=== PATIENT | female | born 1975 | race Caucasian/White ===

== ENCOUNTER 2017-11-10 07:35 | Emergency (ER) | payer OTHER ==
[~2017-11-10] VITALS: Ht 157.5 cm; Wt 67.5 kg
[2017-11-10 07:38] VITALS: BP 149/102
[2017-11-10 10:37] LABS: HEMATOCRIT 38.3 % (36.0-46.0); HEMOGLOBIN 13.3 G/DL (11.9-15.5); MCH 29.6 PG (29.0-34.0); MCHC 34.7 G/DL (30.0-36.0); MCV 85.1 FL (83-99); PLATELET COUNT 223 K/uL (156-360); RBC DIS.WIDTH-CV 11.9 % (11.8-14.6); RBC DIS.WIDTH-SD 37.1 % (39-53); WHITE BLOOD COUNT 7.4 K/uL (4.1-10.2)
[2017-11-10 10:47] LABS: ALBUMIN 3.9 g/dL (3.2-4.8)
[2017-11-10 10:48] LABS: CHLORIDE 105 mEq/L (99-109); POTASSIUM 3.6 mEq/L (3.7-5.4); SODIUM 140 mEq/L (136-147)
[2017-11-10 10:50] LABS: GLUCOSE 97 mg/dL (70-99); TOTAL PROTEIN 7.2 g/dL (6.4-8.3)
[2017-11-10 10:52] LABS: TOTAL BILIRUBIN 0.4 mg/dL (0.0-1.0)
[2017-11-10 10:53] LABS: ALKALINE PHOSPHATASE 56 IU/L (3-129)
[2017-11-10 10:54] LABS: CREATININE 0.7 mg/dL (0.6-1.3); GFR ESTIMATE (CALCULATED) > 59 mL/min/
[2017-11-10 10:55] LABS: AST (GOT) 20 IU/L (2-34); UREA NITROGEN (BUN) 10 mg/dL (9-23)
[2017-11-10 10:57] LABS: ALT (GPT) 17 IU/L (3-49); LIPASE 19 U/L (1.0-51.0)
[2017-11-10 11:01] LABS: APPEARANCE SL.HAZY ((CLEAR)); BILIRUBIN NEGATIVE; BLOOD NEGATIVE; COLOR YELLOW ((YELLOW)); GLUCOSE (STRIP) NEGATIVE; KETONES 20; LEUKOCYTES NEGATIVE; NITRITE NEGATIVE; PROTEIN (STRIP) NEGATIVE; SPECIFIC GRAVITY 1.012 (1.000-1.030); UROBILINOGEN 0.2 MG/DL (0.2-1.0)
[2017-11-10 11:12] LABS: BACTERIA NONE SEEN /HPF; EPITHELIAL CELLS 2+ /HPF; MUCUS 4+ /LPF; RED BLOOD CELLS 0-5 /HPF (0-5); UCUL ADDED? NO; WHITE BLOOD CELLS 0-5 /HPF (0-5)
[2017-11-10] MEDS ORDERED: PROMETHAZINE HC25 M1 PO (11:30)
== END 2017-11-10 12:11 | disposition home or self-care (01) ==
LOC: EME 07:35
PROVIDERS: Physician Assistant
DX: J11.1 Influenza due to unidentified influenza virus with other respiratory manifestations (principal); R11.2 Nausea with vomiting, unspecified; I10 Essential (primary) hypertension; Z88.8 Allergy status to other drugs, medicaments and biological substances
CPT/HCPCS: 80053; 81003; 83690; 85027; J2405; J7030